=== PATIENT | female | born 1980 | race American Indian/Alaskan Native ===

== ENCOUNTER 2019-07-28 19:10 | Emergency (ER) | payer OTHER ==
[2019-07-28] MEDS ORDERED: KETOROLAC 60 MG/2 ML INJ IM ONE (20:34)
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
[2019-07-28 22:08] VITALS: BP 135/85
== END 2019-07-28 22:20 | disposition home or self-care (01) ==
LOC: ED 19:10
DX: S93.401A Sprain of unspecified ligament of right ankle, initial encounter (principal); W01.198A Fall on same level from slipping, tripping and stumbling with subsequent striking against other object, initial encounter; Y93.89 Activity, other specified; Y92.89 Other specified places as the place of occurrence of the external cause; Y99.8 Other external cause status; Z88.5 Allergy status to narcotic agent
CPT/HCPCS: 29515; 73610; 96372; 99284; J1885